=== PATIENT | female | born 1970 | race Caucasian/White ===

== ENCOUNTER 2018-06-01 11:04 | Emergency (ER) | payer OTHER ==
[2018-06-01 11:09] VITALS: BP 144/84
--- NOTE | 2018-06-01 11:09 | ER Report ---
History and Physical Time Seen By MD: 11:09 HPI/ROS CHIEF COMPLAINT: Sinus pain HISTORY OF PRESENT ILLNESS: This is a 48-year-old female presents to the emergency department for sinus pain. Patient states she never her are traveling through and she has developed some recurrent sinus pain. Patient has a long-standing history of sinusitis, has been evaluated by an ENT specialist back in [place]. She states that she has multicolored nasal discharge, postnasal drip and severe sinus pressure along with a sinus headache. Aches and chills beginning yesterday. No nausea or vomiting. No chest pain or shortness of breath. No documented fevers. REVIEW OF SYSTEMS: Respiratory: No cough, no dyspnea. ENT: As above. Cardiovascular: No chest pain, no palpitations. Gastrointestinal: No vomiting, no abdominal pain. Musculoskeletal: No back pain. Neuro: As above. Allergies: Coded Allergies: No Known Drug Allergies (Unverified , 06/01/18) Home Meds Active Scripts Amoxicillin/Pot Clav 875-125 Mg Tab (AUGMENTIN 875-125 TABLET) 1 Each Tablet, 1 TAB PO Q12H for 7 Days, #14 TAB 0 Refills Prov:JODIE ROE RADIOGRAPHER MAMMOGRAPHER-BC 06/01/18 Reported Medications Fluticasone Prop 50 Mcg Ns (FLONASE 50 MCG NS) 16 Gm [place].susp, 1 SPRAY NS BID, BOT 06/01/18 Past Medical/Surgical History The patient has a past medical and surgical history of seasonal allergies, hayfever, frequent sinus infections. Constitutional Vital Sign - Last 24 Hours 06/01/18 11:09 Temp 98.7 Pulse 108 Resp 18 B/P (MAP) 144/84 Pulse Ox 96 O2 Delivery Room Air Physical Exam General Appearance: The patient is alert, has no immediate need for airway protection and no current signs of toxicity. Eyes: Pupils equal and round no injection. ENT: TMs intact, pearly rao, landmarks noted bilaterally. Slightly erythematous posterior oropharynx. Wincing with frontal and maxillary sinus palpation. Respiratory: Chest is non tender, lungs are clear to auscultation. Cardiac: regular rate and rhythm. Gastrointestinal: Abdomen is soft and non tender, no masses, bowel sounds normal. Musculoskeletal: Neck: Neck is supple and non tender. Extremities have full range of motion and are non tender. Skin: No rashes or lesions. DIFFERENTIAL DIAGNOSIS: After history and physical exam differential diagnosis was considered for chronic sinusitis, strep throat, viral syndrome and migraine headache. Medical Decision Making ED Course/Re-evaluation ED Course The patient was admitted to room. A history physical obtained. Differential diagnoses were considered. After my initial assessment, to determine that the patient is likely suffering from pansinusitis. I did send a prescription into the patient's pharmacy for Augmentin. Patient was also instructed to try a different see no allergy medications such as Claritin. Saline rinses. Patient h ad no other questions or concerns at this time and was discharged home. She will be following up with her ENT specialist when she returns home. Decision to Disposition Date: Jun 01, 2018 Decision to Disposition Time: 11:19 Depart Departure Latest Vital Signs Vital Signs Date Time Temp Pulse Resp B/P (MAP) Pulse Ox O2 Delivery O2 Flow Rate FiO2 06/01/18 11:09 98.7 108 18 144/84 96 Room Air Impression: Primary Impression: Sinusitis Condition: Improved Disposition: HOME OR SELF-CARE New Scripts Amoxicillin/Pot Clav 875-125 Mg Tab (AUGMENTIN 875-125 TABLET) 1 Each Tablet 1 TAB PO Q12H for 7 Days, #14 TAB 0 Refills Prov: JODIE ROE-BC 06/01/18 Patient Instructions: Sinusitis (ED) Additional Instructions: Take your antibiotics as prescribed. Try switching your allergy medications, try Claritin for the next 7-14 days. Try saline rinses. Take ibuprofen or Tylenol as needed for pain. May return to [place] follow-up with your ENT specialist. Drink plenty of water. Get plenty of rest. Return to ER for any other concerns or worsening symptoms. Problem Qualifiers Primary Impression: Sinusitis Sinusitis location: pansinusitis Chronicity: acute Recurrence: recurrent Qualified Codes: J01.41 - Acute recurrent pansinusitis JODIE ROE RADIOGRAPHER MAMMOGRAPHER-BC Jun 01, 2018 11:09
[2018-06-01] MEDS ORDERED: FLUT16SP19 NS (11:12)
[2018-06-01] MEDS ORDERED: AMOX-559 PO (11:21)
== END 2018-06-01 11:35 | disposition home or self-care (01) ==
LOC: ER 11:11
DX: J01.41 Acute recurrent pansinusitis (principal)
CPT/HCPCS: 99281